=== PATIENT | female | born 1960 | race Caucasian/White ===

== ENCOUNTER 2019-07-11 12:24 | Emergency (ER) | payer MEDICAID ==
--- NOTE | 2019-07-11 13:04 | EDM.PDOC ---
ED HPI GENERAL MEDICAL PROBLEM - General Chief Complaint: Cardiovascular Problem Stated Complaint: HEART BEAT IS FAST Time Seen by Provider: 07/11/19 12:45 Source of Information: Reports: Patient, Old Records, RN History Limitations: Reports: No Limitations - History of Present Illness INITIAL COMMENTS - FREE TEXT/NARRATIVE: 59 yo female here with a main complaints of increased HR and a pounding of her heart. She has not had any pain or fever. No nausea or vomiting. She has been drinking plenty. Is tapering herself currently off her benzo's. Sx's for the past over a week, has not discussed with her doctor. 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 (see below) (none) Left Arm Pain Score (Numeric/FACES): 5 - Related Data Allergies Allergy/AdvReac Type Severity Reaction Status Date / Time No Known Allergies Allergy Verified 12/22/18 12:08 Home Meds: Home Meds ALPRAZolam [Alprazolam] 0.25 mg PO BEDTIME PRN 12/22/18 [History] Lisinopril 40 mg PO DAILY 12/22/18 [History] PARoxetine [Paxil] 60 mg PO DAILY 12/22/18 [History] Past Medical History HEENT History: Reports: Impaired Vision, Other (See Below) Other HEENT History: tinitis BEVELER History: Reports: , Spontaneous Other Neuro History: fibromyalgia Psychiatric History: Reports: Anxiety - Past Surgical History HEENT Surgical History: Reports: Visual Social & Family History - Tobacco Use Smoking Status *Q: Never Smoker - Caffeine Use Caffeine Use: Reports: Coffee - Recreational Drug Use Recreational Drug Use: Yes Recreational Drug Type: Reports: Marijuana/Hashish ED ROS GENERAL - Review of Systems Review Of Systems: See Below Constitutional: Reports: No Symptoms HEENT: Reports: No Symptoms Respiratory: Reports: No Symptoms Cardiovascular: Reports: Palpitations (heart beating harder and faster than normal). Denies: Chest Pain GI/Abdominal: Reports: No Symptoms : Reports: No Symptoms Musculoskeletal: Reports: No Symptoms Skin: Reports: No Symptoms Neurological: Reports: Tingling (L arm at times). Denies: Headache, Syncope, Trouble Speaking, Difficulty Walking, Change in Speech, Gait Disturbance ED EXAM, GENERAL - Physical Exam Exam: See Below Exam Limited By: No Limitations General Appearance: Alert, WD/WN, No Apparent Distress Eye Exam: Bilateral Eye: Normal Inspection Ears: Normal External Exam, Normal Canal, Hearing Grossly Normal, Normal TMs Ear Exam: Bilateral Ear: Auricle Normal, Canal Normal, TM normal Nose: Normal Inspection, No Blood Throat/Mouth: Normal Inspection, Normal Lips, Normal Oropharynx, Normal Voice, No Airway Compromise Head: Atraumatic, Normocephalic Neck: Normal Inspection, Non-Tender Respiratory/Chest: No Respiratory Distress, Lungs Clear, Normal Breath Sounds, No Accessory Muscle Use Cardiovascular: Regular Rate, Rhythm, No Edema GI/Abdominal: Normal Bowel Sounds, Soft, Non-Tender, No Distention Back Exam: Normal Inspection. No: CVA Tenderness (R), CVA Tenderness (L) Extremities: Normal Inspection, Normal Range of Motion, Non-Tender, No Pedal Edema Neurological: Alert, Oriented, CN II-XII Intact, Normal Cognition, No Motor/ Sensory Deficits Psychiatric: Normal Affect, Normal Mood Skin Exam: Warm, Dry, Intact, Normal Color, No Rash Course - Vital Signs Last Recorded V/S: Last Vital Signs Temp 35.2 C L 07/11/19 12:34 Pulse 88 07/11/19 12:34 Resp 13 07/11/19 12:34 BP 156/71 H 07/11/19 12:34 Pulse Ox 100 07/11/19 12:34 - Orders/Labs/Meds Orders: Active Orders 24 hr Category Date Time Status Cardiac Monitoring [RC] .As Directed Care 07/11/19 12:31 Active Labs: Laboratory Tests 07/11/19 07/11/19 07/11/19 Range/Units 13:00 13:00 13:00 WBC 5.2 (4.5-11.0) K/uL RBC 5.24 (3.30-5.50) M/uL Hgb 12.0 (12.0-15.0) g/dL Hct 40.3 (36.0-48.0) % MCV 77 L (80-98) fL MCH 23 L (27-31) pg MCHC 30 L (32-36) % Plt Count 254 (150-400) K/uL Sodium 138 L (140-148) mmol/L Potassium 4.2 (3.6-5.2) mmol/L Chloride 103 (100-108) mmol/L Carbon Dioxide 29 (21-32) mmol/L Anion Gap 10.2 (5.0-14.0) mmol/L BUN 20 H (7-18) mg/dL Creatinine 1.0 (0.6-1.0) mg/dL Est Cr Clr Drug Dosing 56.00 mL/min Estimated GFR (MDRD) 57 L (>60) Glucose 107 H (74-106) mg/dL Calcium 8.9 (8.5-10.1) mg/dL Troponin I (0.000-0.056) ng/mL TSH, Ultra Sensitive 1.883 (0.358-3.740) uIU/mL 07/11/19 Range/Units 13:43 WBC (4.5-11.0) K/uL RBC (3.30-5.50) M/uL Hgb (12.0-15.0) g/dL Hct (36.0-48.0) % MCV (80-98) fL MCH (27-31) pg MCHC (32-36) % Plt Count (150-400) K/uL Sodium (140-148) mmol/L Potassium (3.6-5.2) mmol/L Chloride (100-108) mmol/L Carbon Dioxide (21-32) mmol/L Anion Gap (5.0-14.0) mmol/L BUN (7-18) mg/dL Creatinine (0.6-1.0) mg/dL Est Cr Clr Drug Dosing mL/min Estimated GFR (MDRD) (>60) Glucose (74-106) mg/dL Calcium (8.5-10.1) mg/dL Troponin I < 0.017 (0.000-0.056) ng/mL TSH, Ultra Sensitive (0.358-3.740) uIU/mL Departure - Departure Time of Disposition: 14:24 Disposition: Home, Self-Care 01 Condition: Good Clinical Impression: Benzodiazepine withdrawal Qualifiers: Complication of substance-induced condition: uncomplicated Qualified Code(s): F13.230 - Sedative, hypnotic or anxiolytic dependence with withdrawal, uncomplicated Instructions: Benzodiazepine Withdrawal Referrals: Stefani Quintero MD [Primary Care Provider] - Forms: ED Department Discharge Additional Instructions: Restart your clonazepam at 1/2 of your full dose and gradually reduce dose over time. Stay in touch with your provider about your progress. Sepsis Event Note - Evaluation Sepsis Screening Result: No Definite Risk - Focused Exam Vital Signs: Vital Signs Temp Pulse Resp BP Pulse Ox 07/11/19 12:34 35.2 C L 88 13 156/71 H 100 07/11/19 12:33 35.2 C L 88 13 156/71 H 100 Date Exam was Performed: 07/11/19 Time Exam was Performed: 14:24 - My Orders Last 24 Hours: My Active Orders 07/11/19 12:31 Cardiac Monitoring [RC] .As Directed - Assessment/Plan Last 24 Hours: My Active Orders 07/11/19 12:31 Cardiac Monitoring [RC] .As Directed
== END 2019-07-11 14:32 | disposition home or self-care (01) ==
LOC: JP.ED 12:24
DX: F13.230 Sedative, hypnotic or anxiolytic dependence with withdrawal, uncomplicated (principal); F41.9 Anxiety disorder, unspecified; Z79.899 Other long term (current) drug therapy
CPT/HCPCS: 36415; 80048; 84443; 84484; 85027; 99284

== ENCOUNTER 2020-09-02 08:33 | Emergency (ER) | payer MEDICAID ==
--- NOTE | 2020-09-02 09:29 | EDM.PDOC ---
ED HPI GENERAL MEDICAL PROBLEM - General Chief Complaint: General Stated Complaint: HIGH BLOOD PRESSURE Time Seen by Provider: 09/02/20 09:00 Source of Information: Reports: Patient, Family History Limitations: Reports: No Limitations - History of Present Illness INITIAL COMMENTS - FREE TEXT/NARRATIVE: 60-year-old female recently had right knee surgery, started physical therapy yesterday but last night felt whooshing in her ears and became anxious and checked her blood pressure and it was elevated. She also felt like her heart was pounding. She does have chronic anxiety. She took her blood pressure several times overnight and several times this morning, it got as high as 168 systolic which scared her so she came in. She took extra lisinopril this morning. Now that she is here in the emergency room she feels better. Onset: Unknown/Unsure Associated Symptoms: Reports: Chest Pain (She has chronic costochondritis-like symptoms, nothing new). Denies: Confusion, Cough, Diaphoresis, Fever/Chills, Malaise, Nausea/Vomiting, Shortness of Breath, Weakness Right Knee Pain Score (Numeric/FACES): 10 - Related Data Allergies Allergy/AdvReac Type Severity Reaction Status Date / Time codeine AdvReac Nausea and Verified 09/02/20 09:04 Vomiting dextromethorphan AdvReac Other Verified 09/02/20 09:04 [From Caylas DM] duloxetine [From Cymbalta] AdvReac Other Verified 09/02/20 09:04 fluoxetine [From Prozac] AdvReac Nausea Verified 09/02/20 09:04 gabapentin AdvReac Dizziness Verified 09/02/20 09:04 guaifenesin AdvReac Other Verified 09/02/20 09:04 [From Caylas DM] Home Meds: Home Meds Acetaminophen 1 - 2 tab PO Q4HR PRN 09/02/20 [History] Ascorbic Acid [Krystyna-C] 1 tab PO DAILY 09/02/20 [History] Aspirin 325 mg PO DAILY 09/02/20 [History] [place] 6 mg PO DAILY 09/02/20 [History] Butalbital/Acetaminophen [Butalbital-Acetaminophn 50-325] 1 tab PO Q6H PRN 09/02/20 [History] Calcium Citrate 750 mg PO DAILY 09/02/20 [History] Cholecalciferol (Vitamin D3) [Vitamin D3] 6,000 unit PO DAILY 09/02/20 [History] ClonazePAM [KlonoPIN] 0.5 mg PO BID PRN 09/02/20 [History] Cyclobenzaprine [Flexeril] 10 mg PO BID PRN 09/02/20 [History] Phytonadione [Vitamin K] 100 mcg PO DAILY 09/02/20 [History] Selenium 200 mcg PO DAILY 09/02/20 [History] Sennosides/Docusate Sodium [Senna-Docusate Sodium Tablet] 2 tab PO BID 09/02/20 [History] Vitamin B Complex [B Complex] 5,000 mg PO DAILY 09/02/20 [History] Zinc Gluconate [Zinc] 30 mg PO DAILY 09/02/20 [History] diazePAM [Valium] 5 mg PO DAILY PRN 09/02/20 [History] hydrOXYzine HCL [Hydroxyzine HCl] 25 mg PO Q6H PRN 09/02/20 [History] lisinopriL [Lisinopril] 20 mg PO DAILY 09/02/20 [History] oxyCODONE 1 - 2 tab PO Q4H PRN 09/02/20 [History] Past Medical History HEENT History: Reports: Impaired Vision, Other (See Below) Other HEENT History: tinitis Cardiovascular History: Reports: Hypertension 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: , Spontaneous Musculoskeletal History: Reports: Arthritis, Osteoarthritis Other Neuro History: fibromyalgia Psychiatric History: Reports: Anxiety - Past Surgical History HEENT Surgical History: Reports: Visual Musculoskeletal Surgical History: Reports: Knee Replacement Other Musculoskeletal Surgeries/Procedures:: right knee replacement 08/25/20 Social & Family History - Caffeine Use Caffeine Use: Reports: None - Recreational Drug Use Recreational Drug Use: Yes Recreational Drug Type: Reports: Marijuana/Hashish Recreational Drug Use Frequency: Monthly ED ROS GENERAL - Review of Systems Review Of Systems: See Below Constitutional: Denies: Fever, Chills, Malaise HEENT: Reports: Other (Patient has a "whooshing" in her ears, much improved since she was at home this morning) Respiratory: Reports: No Symptoms Cardiovascular: Reports: Blood Pressure Problem, Palpitations GI/Abdominal: Reports: No Symptoms Musculoskeletal: Reports: Other (Recent right knee surgery, a small amount of lower extremity edema) Psychiatric: Reports: Anxiety ED EXAM, GENERAL - Physical Exam Exam: See Below Exam Limited By: No Limitations General Appearance: Alert, Anxious Eye Exam: Bilateral Eye: Normal Inspection Head: Atraumatic Neck: Supple, Non-Tender Respiratory/Chest: Lungs Clear Cardiovascular: Regular Rate, Rhythm, Systolic Murmur (Distant systolic murmur is heard) GI/Abdominal: Soft, Non-Tender Extremities: Other (A trace of edema at the ankle on the right side) Neurological: Alert, Oriented Psychiatric: Anxious Skin Exam: Warm, Dry Course - Vital Signs Last Recorded V/S: Last Vital Signs Temp 97.8 F 09/02/20 09:07 Pulse 78 09/02/20 09:20 Resp 14 09/02/20 09:20 BP 145/73 H 09/02/20 09:20 Pulse Ox 97 09/02/20 09:20 - Re-Assessments/Exams Free Text/Narrative Re-Assessment/Exam: 09/02/20 10:03 Patient was monitored for over 1/2-hour in the emergency room, her blood pressure was 152/58 at its highest, pulse was in the 70s and she was in sinus rhythm. She got much calmer while in the emergency room. We had a long discussion of expectations of blood pressure especially after procedure and while in pain, and she is going to continue her medications as prescribed and increase activity as tolerated but try to limit blood pressure checks. Departure - Departure Time of Disposition: 09:48 Disposition: Home, Self-Care 01 Clinical Impression: Situational hypertension, Palpitations - Discharge Information Instructions: Hypertension, Adult, [id number] Referrals: Stefani Quintero MD [Primary Care Provider] - Forms: ED Department Discharge Care Plan Goals: Continue your medications as prescribed, try not to worry about your blood pressure but return to the emergency room if you develop other concerns such as persistent chest pain or shortness of breath. Increase activity as allowed by your surgeon. Sepsis Event Note (ED) - Evaluation Sepsis Screening Result: No Definite Risk - Focused Exam Vital Signs: Vital Signs Temp Pulse Resp BP Pulse Ox 09/02/20 09:20 78 14 145/73 H 97 09/02/20 09:07 97.8 F 83 22 H 152/52 H 99 09/02/20 08:58 97.8 F 83 22 H 152/52 H 99
== END 2020-09-02 09:35 | disposition home or self-care (01) ==
LOC: JP.ED 08:33
DX: I10 Essential (primary) hypertension (principal); M19.90 Unspecified osteoarthritis, unspecified site; Z88.5 Allergy status to narcotic agent; Z88.8 Allergy status to other drugs, medicaments and biological substances; Z79.82 Long term (current) use of aspirin; Z79.899 Other long term (current) drug therapy
CPT/HCPCS: 99283